=== PATIENT | male | born 1985 | race Caucasian/White ===

== ENCOUNTER 2017-03-12 03:10 | Emergency (ER) | payer MEDICAID ==
[~2017-03-12] VITALS: Ht 172.7 cm; Wt 96.0 kg
[2017-03-12 07:37] VITALS: BP 119/77
== END 2017-03-12 07:46 | disposition home or self-care (01) ==
LOC: ER 03:11
DX: M54.12 Radiculopathy, cervical region (principal); F41.9 Anxiety disorder, unspecified
CPT/HCPCS: 71010; 99283; Z7610

== ENCOUNTER 2017-12-02 02:24 | Emergency (ER) | payer MEDICAID ==
[~2017-12-02] VITALS: Ht 172.7 cm; Wt 91.0 kg
[2017-12-02] MEDS ORDERED: KETOROLAC 30MG/ML VIAL IV STA (07:38)
[2017-12-02] MEDS ORDERED: SODIUM CHLORIDE 0.9% 1,000 ML IV ONE (07:38)
[2017-12-02 09:54] LABS: BASOPHILS % 0.6 % (0.0-2.0); CHLORIDE 107 mEq/L (98-107); EOSINOPHILS % 0.7 % (0.0-5.0); HEMATOCRIT. 43.7 % (42.0-52.0); HEMOGLOBIN. 14.6 g/dL (14.0-18.0); MEAN CORPUSCULAR HEMOGLOBIN 27.9 pg (28.0-32.0); MEAN CORPUSCULAR VOLUME 83.6 fL (80.0-94.0); MEAN PLATELET VOLUME 6.9 fl (7.4-10.4); MONOCYTES % 9.6 % (2.0-8.0); NEUTROPHILS % 67.1 % (40.0-76.0); PLATELET 301 x1000/uL (130-400); RED BLOOD CELL COUNT 5.23 mill/uL (4.7-6.1); RED CELL DISTRIBUTION WIDTH 14.3 % (11.6-14.6)
[2017-12-02 09:58] LABS: PROTHROMBIN TIME 10.7 sec (9.4-11.6)
[2017-12-02 09:58] LABS: CLARITY URINE CLEAR (CLEAR); COLOR URINE YELLOW (YELLOW); KETONES URINE NEGATIVE (NEGATIVE); LEUKOCYTE ESTERASE URINE NEGATIVE (NEGATIVE); NITRITE URINE NEGATIVE (NEGATIVE); OCCULT BLOOD URINE NEGATIVE (NEGATIVE); PROTEIN URINE NEGATIVE (NEGATIVE); UROBILINOGEN URINE 0.2 E.U./dL (0.2-1.0)
[2017-12-02] MEDS ORDERED: LIDOCAINE HCL 1% 20ML VIAL (Pyxis) INJ INFIL ONE (10:15)
[2017-12-02] MEDS ORDERED: CEFTRIAXONE SODIUM 250 MG/VIAL IM ONE (10:15)
[2017-12-02] MEDS ORDERED: AZITHROMYCIN 500 MG TABLET PO ONE (10:15)
[2017-12-02 10:50] VITALS: BP 129/89
[2017-12-02] MEDS ORDERED: LIDOCAINE HCL/PF 1% 10 MG/ML 5ML VIAL IJ ONE (11:00)
== END 2017-12-02 11:09 | disposition home or self-care (01) ==
LOC: ER 07:39
DX: N45.2 Orchitis (principal); R10.9 Unspecified abdominal pain; M54.5 Low back pain
CPT/HCPCS: 36415; 74176; 76870; 80053; 81003; 83690; 85025; 85610; 93976; 96372; 96374; 99285; J0696; J1885; J3490; J7030

== ENCOUNTER 2018-06-16 13:38 | Emergency (ER) | payer SELFPAY | END 2018-06-16 15:26 | disposition left against medical advice (07) | LOC: ER 13:38 | DX: S09.90XA Unspecified injury of head, initial encounter (principal); Z53.21 Procedure and treatment not carried out due to patient leaving prior to being seen by health care provider; X58.XXXA Exposure to other specified factors, initial encounter; Y93.89 Activity, other specified; Y92.89 Other specified places as the place of occurrence of the external cause; Y99.8 Other external cause status ==

== ENCOUNTER 2019-08-30 03:45 | Emergency (ER) | payer MEDICAID ==
[~2019-08-30] VITALS: Ht 172.7 cm; Wt 91.0 kg
[2019-08-30] MEDS ORDERED: ASPIRIN 81MG TABLET PO ONE (04:30)
[2019-08-30] MEDS ORDERED: VISCOUS LIDOCAINE 2% 15 ML UDC PO ONE (04:30)
[2019-08-30] MEDS ORDERED: MAGNESIUM/ALUMINUM HYDROXIDE/SIMETHICONE 30ML UDC PO ONE (04:30)
[2019-08-30 04:46] LABS: BASOPHILS % 0.6 % (0.0-2.0); EOSINOPHILS % 1.7 % (0.0-5.0); HEMATOCRIT. 47.8 % (42.0-52.0); LYMPHOCYTES % 37.3 % (20.0-50.0); MEAN CORPUSCULAR HEMOGLOBIN 28.6 pg (28.0-32.0); MEAN CORPUSCULAR VOLUME 85.3 fL (80.0-94.0); MONOCYTES % 9.5 % (2.0-8.0); NEUTROPHILS % 50.9 % (40.0-76.0); PLATELET 256 x1000/uL (130-400); RED CELL DISTRIBUTION WIDTH 13.6 % (11.6-14.6)
[2019-08-30 04:56] LABS: CHLORIDE 104 mEq/L (98-107)
[2019-08-30 05:30] VITALS: BP 131/83
== END 2019-08-30 05:40 | disposition home or self-care (01) ==
LOC: ER 04:58
DX: R07.89 Other chest pain (principal); K29.70 Gastritis, unspecified, without bleeding; R74.0 Nonspecific elevation of levels of transaminase and lactic acid dehydrogenase [LDH]
CPT/HCPCS: 36415; 71045; 80053; 83880; 84484; 85025; 93005; 99285; Z7610

== ENCOUNTER 2019-09-01 10:13 | Emergency (ER) | payer MEDICAID ==
[~2019-09-01] VITALS: Ht 172.7 cm; Wt 91.0 kg
[2019-09-01 10:49] LABS: CLARITY URINE CLEAR (CLEAR); COLOR URINE YELLOW (YELLOW); KETONES URINE NEGATIVE (NEGATIVE); LEUKOCYTE ESTERASE URINE NEGATIVE (NEGATIVE); NITRITE URINE NEGATIVE (NEGATIVE); OCCULT BLOOD URINE NEGATIVE (NEGATIVE); PROTEIN URINE NEGATIVE (NEGATIVE); SPECIFIC GRAVITY URINE 1.004 (1.005-1.030); UROBILINOGEN URINE 0.2 E.U./dL (0.2-1.0)
[2019-09-01] MEDS: CEFTRIAXONE SODIUM 250 MG/VIAL IM NR ×2 (12:14→12:17)
[2019-09-01 12:15] VITALS: BP 118/86
[2019-09-01] MEDS: LIDOCAINE HCL/PF 1% 10 MG/ML 5ML VIAL INL NR ×2 (12:15→12:17)
[2019-09-01] MEDS: AZITHROMYCIN 500 MG TABLET PO NR ×2 (12:15→12:17)
== END 2019-09-01 12:10 | disposition home or self-care (01) ==
LOC: ER 10:13
DX: N43.3 Hydrocele, unspecified (principal); L72.0 Epidermal cyst; I86.1 Scrotal varices
CPT/HCPCS: 76870; 81003; 93976; 96372; 99284; J0696; J3490